=== PATIENT | female | born 2000 | race Hispanic/Latino ===

== ENCOUNTER 2020-10-16 12:20 | Inpatient (IN) | payer OTHER, SELFPAY ==
[2020-10-16] VITALS (11 sets, daily range): BP systolic 103–117; BP diastolic 55–84; PULSE 129–147; RESP 18–32; TEMP 36.2–39.4; O2SAT 98; BMI 26.2
--- NOTE | 2020-10-16 | DI.US.S_ITS ---
PROCEDURE: US RENAL COMPLETE INDICATIONS: PYELONEPHRITIS TECHNIQUE: Real-time scanning was performed of the kidneys and bladder, with image documentation. COMPARISON: [facility], , [facility], 10/16/2020, 15:35. FINDINGS: Kidneys: Kidneys are normal in size. Right kidney measures 13.1 cm long; left kidney measures 12.4 cm long. Right renal cortical thickness is 2.3 cm; left renal cortical thickness is 1.7 cm. Renal cortical echotexture is normal. No nephrolithiasis. On the right, 2 mildly echogenic solid appearing cortical masses are seen, which measure up to 2.4 cm within the mid/anterior portion and up to 2.6 cm within the inferior right kidney. There is severe right-sided hydronephrosis. The proximal right ureter is dilated to 1.3 cm. Moderate left-sided hydronephrosis is seen. Bladder: Not distended and poorly evaluated. Miscellaneous: No free pelvic fluid. IMPRESSION: There is severe right-sided hydronephrosis and moderate left-sided hydronephrosis. Two mildly echogenic masses are seen involving the right kidney. The etiology of these is uncertain, although they may relate to pyelonephritis. Renal cell carcinoma is relatively unlikely in a patient of this age. However, when clinically appropriate, following delivery, a dedicated renal mass protocol CT (without and with contrast) would be recommended for further evaluation. Dictated by: Rodger Deleon M.D. on 10/16/2020 at 15:11 Approved by: Rodger Deleon M.D. on 10/16/2020 at 15:14
[2020-10-16] MEDS: LACTATED RINGERS 1,000 ML 1000 ML IV (13:45)
--- NOTE | 2020-10-16 13:53 | PM.OBHP.1 ---
OB HPI Date/Time Date of admission: 10/16/20 Date Patient Seen: 10/16/20 Time Patient Seen: 13:53 History of Present Condition Chief complaint: Kidney Infection : 3 Para: 1 Estimated Date of Delivery: 01/25/21 Narrative: Carmen Beltre is a 20 year old @25+4 by reported 1st trimester US, presenting with pyelonephritis
--- NOTE | 2020-10-16 14:08 | DI.US.S_ITS ---
PROCEDURE: US OB LIMITED INDICATIONS: PYELONEPHRITIS OUTSIDE/PRIOR DATING DATA: Last menstrual period (LMP): Unknown LMP-based estimated date of delivery (CARMITA): Unknown First dating scan (date and location): W , 08/13/2020 Estimated date of delivery (CARMITA) from first dating scan: 01/18/2021 TECHNIQUE: Real-time scanning was performed of the fetus, with image documentation. Endovaginal scanning: Not done COMPARISON: [facility], , RENAL COMPLETE, 10/16/2020, 15:26. FINDINGS: A single live intrauterine gestation is present. Presentation: Vertex. Placenta: Placental position is anterior, without previa. Amniotic fluid index: 14.3 cm, normal range is 5-24 cm. heart rate: 158 beats per minute. Maternal cervical canal: 3.3 cm long. Normal lower limit is 2.5 cm. Biometric measurements: Biparietal diameter: 6.8 cm equals 27 weeks 2 days Head circumference: 24.8 cm equals 27 weeks 0 days Abdominal circumference: 21.6 cm equals 26 weeks 0 days Femur length: 4.9 cm equals 26 weeks 4 days Estimated gestational age from initial scan: 26 weeks 4 days. Estimated gestational age from the current scan: 26 weeks 5 days Estimated weight and percentile: 9 and 32 g, 32 percentile. The maternal right kidney collecting system is again seen to be severely dilated. IMPRESSION: Severely dilated maternal right renal collecting system. Normal interval growth when compared to the prior ultrasound examination. Dictated by: Rodger Deleon M.D. on 10/16/2020 at 15:15 Approved by: Rodger Deleon M.D. on 10/16/2020 at 15:18
[2020-10-16 14:20] LABS: Add Manual Diff / Slide Review NO; Basophils Absolute Auto 0 /uL (0-100); Basophils Percent Auto 0.1 % (0-2); Eosinophils Absolute Auto 0 /uL (0-450); Hematocrit 30.6 % (36-46); Hemoglobin 10.2 g/dL (12.0-16.0); Lymphocytes Absolute Auto 1000 /uL (1100-4500); Lymphocytes Percent Auto 5.4 % (25-40); Mean Corpuscular HGB Conc 33.4 % (30-36); Mean Corpuscular Hemoglobin 28.7 PG (26-34); Monocytes Absolute Auto 1500 /uL (0-900); Monocytes Percent Auto 8.3 % (3-14); Neutrophils Absolute Auto 15700 /uL (1500-7000); Neutrophils Percent Auto 86.2 % (50-75); Platelet Count 307 X10^3/uL (150-400); Red Blood Cell Count 3.56 X10^6/uL (4.0-5.2); Red Cell Distribution Width 13.5 % (11.6-14.8); White Blood Cell Count 18.2 X10^3/uL (4.5-11.0)
--- NOTE | 2020-10-16 14:21 | P.HP_ITS ---
History of Present Illness History of Present Illness Date Patient Seen: 10/16/20 Time Patient Seen: 13:45 Date of Onset of Symptoms: 10/16/20 Chief complaint: Kidney Infection Narrative: This patient is a 20-year-old 011 at 25 weeks 4 days by first- trimester ultrasound presenting with likely pyelonephritis. The patient reports that all her prior care has been through the [facility], with frequent moves and 2 ED visits at [facility]. She reports that she 1st began having flank pain in June 2020, and reports that she was seen in the emergency room sometime in July. She reports that on ultrasound, they told me that my kidneys and the baby's kidneys were inflamed from an infection.? She got IV fluids and cannot remember if she got IV antibiotics, and was discharged with planned outpatient follow-up. She cannot remember if she had p.o. antibiotics at this time. She was seen a 2nd time for worsening of her symptoms in August 2020, and reports that she was given IV fluids. She was discharged with an an tibiotic that she remembers being directed to take 4 times daily for 1 week, reporting that she remembered most of the doses. She has since been taking Macrobid once daily, and reports that she has been adherent to this regimen. Three days ago, she began to have worsening right flank pain, fevers, chills, malaise, muscle aches, and nausea, slowly worsening until this morning and prompting her 1st visit to [facility]. She reports good movement, denies contractions, denies suprapubic pain, denies vaginal bleeding or loss of fluid. She reports decreased p.o. intake due to her nausea and malaise over the last few days, and admits that she has not been hydrating well. The patient reports that prior to this she has no history of urinary tract infections or pyelonephritis, along with no history of kidney stones or any known renal abnormalities. She has a history of an uncomplicated term vaginal delivery, and reports a history of early surgical that was unc omplicated. The patient denies any other contributory obstetrical, gynecologic, medical, surgical, family, or social history. Her outside medical records are pending. Patient History Medical History (normal spontaneous vaginal delivery) Surgical History History of dilatation and curettage Meds Home Medications and Allergies Home Medications Medication Instructions Recorded Confirmed Type prenat.vits,hilary,wac-gtcp-nrwue 1 tab PO DAILY 10/16/20 10/16/20 History [ Vitamin] Allergies Allergy/AdvReac Type Severity Reaction Status Date / Time No Known Drug Allergies Allergy Verified 10/16/20 13:54 Review of Systems Constitutional Constitutional: Reports as per HPI Cardiovascular Cardiovascular: Reports system reviewed and no additional complaints, except as documented Respiratory Respiratory: Reports system reviewed and no additional complaints, except as documented Gastrointestinal Gastrointestinal: Reports as per HPI Genitourinary Genitourinary: Reports as per HPI Neurologic Neurologic: Reports as per HPI Exam Vital Signs (past 8 hours): 102-120/60-78, HR 130s-140s, T 102.5F, O2 98-100% on RA Narrative Exam Narrative: Patient resting in bed, alert and oriented, poor historian but this appears more related to healthcare literacy than to illness patient does appear pale, diaphoretic Const General: cooperative and diaphoretic Nutritional Appearance: average body habitus Orientation: alert, awake and oriented x3 Resp Effort & Inspection: normal respiratory effort Auscultation: clear to auscultation bilaterally Cardio Rate: regular rate Rhythm: regular rhythm GI Palpation: soft and No tender Other: Appropriately gravid, no suprapubic tenderness. heart rate initially 170-180s, baseline down trending with maternal hydration, now 160s, reactive, moderate variability. No contractions on toco. General: CVA tenderness (Bilaterally, right significantly worse than left) Extrem General: normal to inspection, capillary refill normal, no pedal edema and no calf tenderness Objective Labs Result Diagrams: 10/16/20 13:21 10/16/20 13:21 Assessment & Plan Assessment & Plan narrative: Patient is admitted with urosepsis, with known p rior episodes pyelonephritis, clinical and laboratory findings consistent with pyelonephritis, and meeting criteria for sepsis. Since admission, the patient has been aggressively fluid hydrated with lactated Ringer's, has been tested and found to be COVID negative, and has reassuring status in the setting of maternal sepsis. Oral sign out with labor and delivery nurses at [facility] indicates that no urine cultures were completed at her prior visits, and therefore sensitivities are not available. 1g of IV ceftriaxone has been administered per standard empiric therapy for pyelonephritis in , given that her prior bouts appear to have been incompletely treated and that there is greater safety data of ceftriaxone in compared to alternatives. Given the current status and staffing of the labor floor and the acute care floor in the setting of the pandemic, the patient will remain on Labor and delivery for the time being. The patient will receive close monitoring of vital signs, aggressive fluid hydration, IV antibiotics as below, and repeat labs as necessary. - Patient to continue 2nd L LR bolus, anticipate a 3rd L bolus with 250ccs/hr subsequently - VS q30 minutes until patient stability assured - urine culture, blood cultures, lactate pending - renal ultrasound, ultrasounds in progress - 1g IV ceftriaxone q24 until sensitivity data returns - NSTs qshift - regular diet - SCDs applied - PO tylenol for pain relief adequate at this time, consider IV morphine if neccessary
[2020-10-16 14:27] LABS: BUN Creatinine Ratio 10.2 (6-22); Blood Urea Nitrogen 5 mg/dL (7-17); Calcium 8.7 mg/dL (8.4-10.2); Carbon Dioxide 23 mmol/L (22-32); Chloride 100 mmol/L (98-107); Estimated Glomerular Filt Rate > 60.0 mL/min (>60); Glucose 89 mg/dL (70-100); HEMOLYSIS < 15 (0-50); Potassium 3.6 mmol/L (3.4-5.1); Sodium 130 mmol/L (137-145)
[2020-10-16 14:30] LABS: Appearance Urine UA SL CLOUDY; Bilirubin Urine UA NEGATIVE (NEGATIVE); Color Urine UA YELLOW; Glucose Urine UA NEGATIVE (Negative); Ketones Urine UA NEGATIVE (NEGATIVE); Leukocyte Esterase Urine UA TRACE (NEGATIVE); Nitrite Urine UA POSITIVE (Negative); Occult Blood Urine UA TRACE-LYSED (Negative); Protein Urine UA 1+ (Negative); Specific Gravity Urine UA 1.015 (1.000-1.035)
[2020-10-16] MEDS: ACETAMINOPHEN 325 MG TABLET 650 MG PO ×2 (14:30→20:52)
[2020-10-16 14:31] LABS: pH Urine UA 6.5 (4.5-8.0)
[2020-10-16 14:33] LABS: COVID19 -Nasal RAPID Negative (Negative)
[2020-10-16] MEDS: CEFTRIAXONE 1 GM/50 ML FROZ.PIGGY IV (14:35)
[2020-10-16 14:38] LABS: Bacteria Urine Many (>30); Culture Indicated Urine Specimen Cultured; RBC Urine 0-1/HPF (0-5/HPF); Squamous Epithelial Cell Urine 1-5 /HPF (0-5/HPF); WBC Urine 10-30/HPF (0-5/HPF)
[2020-10-16] MEDS: LACTATED RINGERS 1,000 ML 999 ML IV (14:42)
[2020-10-16] MEDS: LACTATED RINGERS 1,000 ML 250 ML IV (16:11)
--- NOTE | 2020-10-16 17:05 | PM.PN.1 ---
Subjective Subjective Date Patient Seen: 10/16/20 Time Patient Seen: 17:06 Interval history: Patient reports no change in her symptoms, neither worsening pain nor significant improvement. Patient previously hypotensive to 90s/50s with HR in 140s, transfer to [facility] floor in progress for close monitoring of VS and sepsis overnight. Exam Vital Signs (past 8 hours): 114/56, HR 114 10/16/20 14:30 Temperature 101.1 F H Const General: cooperative Other: Color and diaphoresis improved Objective Labs Result Diagrams: 10/16/20 13:21 10/16/20 13:21 Labs: Laboratory Results - last 24 hr 10/16/20 10/16/20 10/16/20 12:30 13:20 13:21 WBC 18.2 H RBC 3.56 L Hgb 10.2 L Hct 30.6 L MCV 86.0 MCH 28.7 MCHC 33.4 RDW 13.5 Plt Count 307 Neut % (Auto) 86.2 H Lymph % (Auto) 5.4 L [place] % (Auto) 8.3 Eos % (Auto) 0.0 L Baso % (Auto) 0.1 Neut # (Auto) 39013 H Lymph # (Auto) 1000 L [place] # (Auto) 1500 H Eos # (Auto) 0 Baso # (Auto) 0 Sodium Potassium Chloride Carbon Dioxide BUN Creatinine Estimated GFR BUN/Creatinine Ratio Glucose Lactate Calcium Urine Color Yellow Urine Appearance Sl cloudy Urine pH 6.5 Ur Specific [place] 1.015 Urine Protein 1+ H Urine Glucose (UA) Negative Urine Ketones Negative Urine Occult Blood Trace-lysed Urine Nitrate Positive H Urine Bilirubin Negative Urine Urobilinogen 1.0 Ur Leukocyte Esterase Trace H Urine RBC 0-1/hpf Urine WBC 10-30/hpf H Ur Squamous Epith Cells 1-5 /hpf Urine Bacteria Many (>30) H Ur Culture Indicated? Specimen cultured SARS-CoV-2 (PCR) Negative 10/16/20 10/16/20 13:21 15:45 WBC RBC Hgb Hct MCV MCH MCHC RDW Plt Count Neut % (Auto) Lymph % (Auto) [place] % (Auto) Eos % (Auto) Baso % (Auto) Neut # (Auto) Lymph # (Auto) [place] # (Auto) Eos # (Auto) Baso # (Auto) Sodium 130 L Potassium 3.6 Chloride 100 Carbon Dioxide 23 BUN 5 L Creatinine 0.49 L Estimated GFR > 60.0 BUN/Creatinine Ratio 10.2 Glucose 89 Lactate 1.0 Calcium 8.7 Urine Color Urine Appearance Urine pH Ur Specific [place] Urine Protein Urine Glucose (UA) Urine Ketones Urine Occult Blood Urine Nitrate Urine Bilirubin Urine Urobilinogen Ur Leukocyte Esterase Urine RBC Urine WBC Ur Squamous Epith Cells Urine Bacteria Ur Culture Indicated? SARS-CoV-2 (PCR) [facility] Medical History (normal spontaneous vaginal delivery) Surgical History History of dilatation and curettage Assessment & Plan Assessment & Plan narrative: Since admission, patient became more hypotensive and tachycardic triggering transfer to acute care floor, but now appears to be clinically improving with improving vital signs and appearance. Renal ultrasound showed no renal abscess, but significant hydronephrosis bilaterally. No clear signs of obstruction on imaging, and patient has no clinical signs of kidney stones on US. Further, renal function appears normal with normal creatinine. Discussed with Dr. Piña of Urology, patient will be expectantly managed for hydronephrosis at this time given unclear cause and normal renal function. Will continue to manage pyelonephritis as below, trend daily labs. - S/p 2L LR as IV bolus, 250ccs/hr subsequently - VS q1 hr - urine culture, blood cultures pending - renal ultrasound as above, will continue to manage as above - Daily CBC, BMP - 1g IV ceftriaxone q24 until sensitivity data returns - NSTs qshift - regular diet - SCDs applied - PO tylenol for pain relief adequate at this time, IV morphine if necessary
[2020-10-16] MEDS: MORPHINE 2 MG/ML INJ IV ×2 (18:48→22:25)
--- NOTE | 2020-10-16 19:06 | PC.NURSE ---
Pt admitted to 226 from the center with c/o R flank pain. Transferred for observation of VS and possible sepsis. IV LR infusing @ 250 to L hand IV. Medicated with MS for R flank pain. Admission assessment completed.
[2020-10-16] MEDS: LACTATED RINGERS 1,000 ML 125 ML IV (20:42)
[2020-10-17] VITALS (12 sets, daily range): BP systolic 102–112; BP diastolic 55–74; PULSE 83–134; RESP 15–25; TEMP 36.5–39.3; O2SAT 98–100
--- NOTE | 2020-10-17 00:38 | PC.NURSE ---
10/16/2020 2340- RN at patient bedside for a Non-Stress Test. Patient states she has been feeling baby move. Patient denies feeling contractions. Baseline Heart Rate: 150 with moderate variability. Accelerations present. No Decelerations noted. No contractions seen per TOCO. Category I tracing. Non-Stress Test started at 2340 and ended at 0020 on 10/17/2020.
[2020-10-17] MEDS: LACTATED RINGERS 1,000 ML 250 ML IV ×4 (00:59→18:21)
[2020-10-17] MEDS: ACETAMINOPHEN 325 MG TABLET 650 MG PO ×3 (03:57→17:23)
[2020-10-17 05:14] LABS: Add Manual Diff / Slide Review NO; Basophils Absolute Auto 0 /uL (0-100); Basophils Percent Auto 0.2 % (0-2); Eosinophils Absolute Auto 0 /uL (0-450); Eosinophils Percent Auto 0.1 % (2-4); Hematocrit 22.9 % (36-46); Hemoglobin 7.8 g/dL (12.0-16.0); Lymphocytes Absolute Auto 1100 /uL (1100-4500); Mean Corpuscular HGB Conc 34.1 % (30-36); Mean Corpuscular Volume 85.2 fL (80-100); Monocytes Absolute Auto 1900 /uL (0-900); Neutrophils Absolute Auto 12600 /uL (1500-7000); Neutrophils Percent Auto 80.7 % (50-75); Platelet Count 236 X10^3/uL (150-400); Red Blood Cell Count 2.69 X10^6/uL (4.0-5.2); Red Cell Distribution Width 13.4 % (11.6-14.8); White Blood Cell Count 15.6 X10^3/uL (4.5-11.0)
[2020-10-17 05:24] LABS: Calcium 8.1 mg/dL (8.4-10.2); Carbon Dioxide 24 mmol/L (22-32); Chloride 105 mmol/L (98-107); Estimated Glomerular Filt Rate > 60.0 mL/min (>60); Glucose 97 mg/dL (70-100); HEMOLYSIS < 15 (0-50); Potassium 3.5 mmol/L (3.4-5.1); Sodium 129 mmol/L (137-145)
[2020-10-17 05:30] LABS: BUN Creatinine Ratio 5.4 (6-22); Blood Urea Nitrogen 2 mg/dL (7-17)
--- NOTE | 2020-10-17 10:01 | PM.PN.1 ---
Subjective Subjective Date Patient Seen: 10/17/20 Time Patient Seen: 10:01 Interval history: Patient reports that she has been using tylenol for pain control, spiked another fever just before midnight but is now feeling improved. No chest pain or trouble breathing, palpitations. Tolerating PO, ambulating, voiding, passing flatus. Normal movement, no contractions, no LOF, no VB. NST completed by nursing staff this AM, reactive and cat 1 with no contractions on toco. Exam Vital Signs (past 8 hours): - 10/17/20 03:44 10/17/20 03:57 10/17/20 08:40 Temperature 100.0 F H 100 F H 99.7 F H Pulse Rate 121 H 83 Respiratory Rate 21 15 Blood Pressure 112/74 110/63 Pulse Oximetry 100 99 10/17/20 09:55 Temperature 98.1 F Pulse Rate Respiratory Rate Blood Pressure Pulse Oximetry 100 Oxygen Delivery Method Room Air Oxygen Flow Rate 0 Narrative Exam Narrative: Patient resting in bed, just finished breakfast. Remains pale, but otherwise well appearing. Const General: cooperative, comfortable and well developed Orientation: alert, awake and oriented x3 Resp Effort & Inspection: normal respiratory effort Auscultation: clear to auscultation bilaterally Cardio Rate: regular rate Rhythm: regular rhythm GI Palpation: soft Other: appropriately gravid Extrem General: normal to inspection Objective Labs Result Diagrams: 10/17/20 04:55 10/17/20 04:55 Labs: Laboratory Results - last 24 hr 10/16/20 10/16/20 10/16/20 12:30 13:20 13:21 WBC 18.2 H RBC 3.56 L Hgb 10.2 L Hct 30.6 L MCV 86.0 MCH 28.7 MCHC 33.4 RDW 13.5 Plt Count 307 Neut % (Auto) 86.2 H Lymph % (Auto) 5.4 L [place] % (Auto) 8.3 Eos % (Auto) 0.0 L Baso % (Auto) 0.1 Neut # (Auto) 78016 H Lymph # (Auto) 1000 L [place] # (Auto) 1500 H Eos # (Auto) 0 Baso # (Auto) 0 Sodium Potassium Chloride Carbon Dioxide BUN Creatinine Estimated GFR BUN/Creatinine Ratio Glucose Lactate Calcium Urine Color Yellow Urine Appearance Sl cloudy Urine pH 6.5 Ur Specific [place] 1.015 Urine Protein 1+ H Urine Glucose (UA) Negative Urine Ketones Negative Urine Occult Blood Trace-lysed Urine Nitrate Positive H Urine Bilirubin Negative Urine Urobilinogen 1.0 Ur Leukocyte Esterase Trace H Urine RBC 0-1/hpf Urine WBC 10-30/hpf H Ur Squamous Epith Cells 1-5 /hpf Urine Bacteria Many (>30) H Ur Culture Indicated? Specimen cultured Nasal Screen MRSA (PCR) SARS-CoV-2 (PCR) Negative Blood Type Antibody Screen 10/16/20 10/16/20 10/16/20 13:21 15:45 17:05 WBC RBC Hgb Hct MCV MCH MCHC RDW Plt Count Neut % (Auto) Lymph % (Auto) [place] % (Auto) Eos % (Auto) Baso % (Auto) Neut # (Auto) Lymph # (Auto) [place] # (Auto) Eos # (Auto) Baso # (Auto) Sodium 130 L Potassium 3.6 Chloride 100 Carbon Dioxide 23 BUN 5 L Creatinine 0.49 L Estimated GFR > 60.0 BUN/Creatinine Ratio 10.2 Glucose 89 Lactate 1.0 Calcium 8.7 Urine Color Urine Appearance Urine pH Ur Specific [place] Urine Protein Urine Glucose (UA) Urine Ketones Urine Occult Blood Urine Nitrate Urine Bilirubin Urine Urobilinogen Ur Leukocyte Esterase Urine RBC Urine WBC Ur Squamous Epith Cells Urine Bacteria Ur Culture Indicated? Nasal Screen MRSA (PCR) Negative for mrsa SARS-CoV-2 (PCR) Blood Type Antibody Screen 10/16/20 10/17/20 10/17/20 20:55 04:55 04:55 WBC 15.6 H RBC 2.69 L Hgb 7.8 L Hct 22.9 L MCV 85.2 MCH 29.0 MCHC 34.1 RDW 13.4 Plt Count 236 Neut % (Auto) 80.7 H Lymph % (Auto) 7.0 L [place] % (Auto) 12.0 Eos % (Auto) 0.1 L Baso % (Auto) 0.2 Neut # (Auto) 05365 H Lymph # (Auto) 1100 [place] # (Auto) 1900 H Eos # (Auto) 0 Baso # (Auto) 0 Sodium 129 L Potassium 3.5 Chloride 105 Carbon Dioxide 24 BUN 2 L Creatinine 0.37 L Estimated GFR > 60.0 BUN/Creatinine Ratio 5.4 L Glucose 97 Lactate Calcium 8.1 L Urine Color Urine Appearance Urine pH Ur Specific [place] Urine Protein Urine Glucose (UA) Urine Ketones Urine Occult Blood Urine Nitrate Urine Bilirubin Urine Urobilinogen Ur Leukocyte Esterase Urine RBC Urine WBC Ur Squamous Epith Cells Urine Bacteria Ur Culture Indicated? Nasal Screen MRSA (PCR) SARS-CoV-2 (PCR) Blood Type O Positive Antibody Screen Negative PFSH Medical History (normal spontaneous vaginal delivery) Surgical History History of dilatation and curettage Social History household members: spouse Smoking Status: Never smoker alcohol intake: never Assessment & Plan Assessment and plan (1) Pyelonephritis affecting : Status: Acute Assessment & Plan narrative: This patient is a 20yo P1 @25+5 admitted with pyelonephritis. Patient had one fever at midnight last night, but is otherwise clinically stable. Anticipate at least 24 hours of IV abx coverage necessary for patient to remain afebrile. - VSS, decrease IVF to 125ccs/hr - VS q1 hr this AM, will decrease to q4 if remains stable - urine culture, blood cultures pending - Daily CBC, BMP - 1g IV ceftriaxone q24 until sensitivity data returns - NSTs qshift - regular diet - SCDs applied - PO tylenol for pain relief adequate at this time, IV morphine if necessary Quality VTE Deep Vein Thrombosis/Pulmonary Embolism Present on Admission: No
--- NOTE | 2020-10-17 10:03 | PC.NURSE ---
AM shift report. pt AO and receptive to care. Up SBA to BR and denying issues with ambulation. Voiding without pain. 100F fever during NOC shift, managed with Tylenol, and no fever present thus far for this nurse (98.1F). Patient reporting mild headache and mild right flank pain. Administered 650mg Tylenol for head and flank pain at approximately 1000. LR infusing 225/hr to left hand PIV. Tele reading NSR with occasional tachy rate. L&D nurse came up to room around 0845 for a bedside non-stress test.
[2020-10-17] MEDS: CEFTRIAXONE 1 GM/50 ML FROZ.PIGGY IV (14:27)
--- NOTE | 2020-10-17 14:40 | CM.DANOTE ---
DCP: Case received, EMR reviewed and met with patient. Introduced self and role. Was able to receive some information regarding patient's baseline activity information prior to hospitalization. DCP assessment completed with information currently available. 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 PCP: ROSANA Newby/Dr. Gann. Payer: [facility] [employer]. Patient came to the hospital via private vehicle secondary to having fever, as well as flank back pain. Patient holds diagnosis of pyelonephritis. She is here for IV ABO. Patient is also 25 weeks , and is under the care of Dr. Gann. Met with patient in her room. She is alert and oriented, and was laying in bed. 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 [facility], but has been seeing Dr. Gann for her OB appointments. Patient is to Bg, who is also active duty Booster. P: DCP to continue to follow and be available for any resources needed. She should be able to go home when she is medically stable. Tricia Alejandro RN/Tub Wash Operator
[2020-10-17] MEDS: MORPHINE 2 MG/ML INJ IV ×2 (15:38→18:49)
[2020-10-17] MEDS: FERROUS SULFATE 325 MG TABLET PO (16:55)
[2020-10-17] MEDS: SODIUM CHLORIDE 0.9% 500 ML 1000 ML IV (18:22)
--- NOTE | 2020-10-17 18:38 | PC.NURSE ---
Evening shift note: Pt A/O x3, able to ambulate to bathroom independently, denies pain with voiding. Normal temperature for dayshift, Tmax for this nurse has been 102.7, tylenol administered, Dr. Gann updated on pt status, 500mL bolus ordered with cooling measures. Pt reports headache and flank pain, administered MS per order. LR infusing at 125 mL/hr, when the 500 bolus is completed. Telemetry shows NS with tachycardia. center nurse came at 1800 for bedside non-stress test, will return at 1900 to repeat due to heart rate elevation. Bed low and locked, call light within reach, will continue to monitor.
[2020-10-17 18:48] LABS: Add Manual Diff / Slide Review NO; Basophils Absolute Auto 0 /uL (0-100); Basophils Percent Auto 0.2 % (0-2); Eosinophils Absolute Auto 0 /uL (0-450); Eosinophils Percent Auto 0.2 % (2-4); Hematocrit 23.9 % (36-46); Lymphocytes Absolute Auto 700 /uL (1100-4500); Mean Corpuscular HGB Conc 33.4 % (30-36); Mean Corpuscular Hemoglobin 28.8 PG (26-34); Mean Corpuscular Volume 86.1 fL (80-100); Monocytes Absolute Auto 600 /uL (0-900); Monocytes Percent Auto 5.2 % (3-14); Neutrophils Absolute Auto 11100 /uL (1500-7000); Neutrophils Percent Auto 88.4 % (50-75); Platelet Count 253 X10^3/uL (150-400); Red Blood Cell Count 2.77 X10^6/uL (4.0-5.2); Red Cell Distribution Width 13.4 % (11.6-14.8); White Blood Cell Count 12.5 X10^3/uL (4.5-11.0)
[2020-10-18] VITALS (8 sets, daily range): BP systolic 90–108; BP diastolic 59–73; PULSE 80–109; RESP 16–26; TEMP 36.2–37.3; O2SAT 93–100
--- NOTE | 2020-10-18 00:30 | PC.NURSE ---
0000- Placed on monitor for NST. Jennifer RN will evaluate. Will monitor.
[2020-10-18] MEDS: ACETAMINOPHEN 325 MG TABLET 650 MG PO ×4 (01:27→23:52)
[2020-10-18] MEDS: LACTATED RINGERS 1,000 ML 125 ML IV ×3 (04:01→23:57)
[2020-10-18 06:49] LABS: Add Manual Diff / Slide Review NO; Basophils Absolute Auto 0 /uL (0-100); Basophils Percent Auto 0.1 % (0-2); Eosinophils Absolute Auto 100 /uL (0-450); Eosinophils Percent Auto 0.5 % (2-4); Hematocrit 23.9 % (36-46); Lymphocytes Absolute Auto 1800 /uL (1100-4500); Lymphocytes Percent Auto 13.6 % (25-40); Mean Corpuscular HGB Conc 33.4 % (30-36); Mean Corpuscular Hemoglobin 28.8 PG (26-34); Mean Corpuscular Volume 86.3 fL (80-100); Monocytes Absolute Auto 1200 /uL (0-900); Monocytes Percent Auto 9.3 % (3-14); Neutrophils Absolute Auto 10000 /uL (1500-7000); Neutrophils Percent Auto 76.5 % (50-75); Platelet Count 253 X10^3/uL (150-400); Red Blood Cell Count 2.77 X10^6/uL (4.0-5.2); Red Cell Distribution Width 13.5 % (11.6-14.8)
[2020-10-18 06:57] LABS: Calcium 8.3 mg/dL (8.4-10.2); Carbon Dioxide 24 mmol/L (22-32); Chloride 108 mmol/L (98-107); Estimated Glomerular Filt Rate > 60.0 mL/min (>60); Glucose 86 mg/dL (70-100); HEMOLYSIS < 15 (0-50); Potassium 3.7 mmol/L (3.4-5.1); Sodium 135 mmol/L (137-145)
[2020-10-18 06:59] LABS: BUN Creatinine Ratio 4.8 (6-22); Blood Urea Nitrogen 2 mg/dL (7-17)
--- NOTE | 2020-10-18 07:38 | PM.PN.1 ---
Subjective Subjective Date Patient Seen: 10/18/20 Time Patient Seen: 07:40 Interval history: Patient had another fever yesterday evening, but this AM reports feeling overall improved, both since last night and since admission. Reports good pain control on tylenol, ambulating, voiding, tolerating PO. Good movement, no contractions, no vaginal bleeding, no loss of fluid. Reports intermittent headaches, improved since admission, no visual changes or hypertension. Exam Vital Signs (past 8 hours): - 10/18/20 01:27 10/18/20 02:57 Temperature 98.1 F 98.0 F Pulse Rate 87 Respiratory Rate 21 Blood Pressure 96/59 L Pulse Oximetry 99 Oxygen Delivery Method Room Air Oxygen Flow Rate 0 Const General: cooperative, healthy appearing and comfortable Resp Effort & Inspection: normal respiratory effort Auscultation: clear to auscultation bilaterally Cardio Rate: regular rate Rhythm: regular rhythm GI Palpation: soft and No tender Other: appropriately gravid Extrem General: normal to inspection Objective Labs Result Diagrams: 10/18/20 06:20 10/18/20 06:20 Labs: Laboratory Results - last 24 hr 10/17/20 10/18/20 10/18/20 18:42 06:20 06:20 WBC 12.5 H 13.0 H RBC 2.77 L 2.77 L Hgb 8.0 L 8.0 L Hct 23.9 L 23.9 L MCV 86.1 86.3 MCH 28.8 28.8 MCHC 33.4 33.4 RDW 13.4 13.5 Plt Count 253 253 Neut % (Auto) 88.4 H 76.5 H Lymph % (Auto) 6.0 L 13.6 L [place] % (Auto) 5.2 9.3 Eos % (Auto) 0.2 L 0.5 L Baso % (Auto) 0.2 0.1 Neut # (Auto) 40662 H 92592 H Lymph # (Auto) 700 L 1800 [place] # (Auto) 600 1200 H Eos # (Auto) 0 100 Baso # (Auto) 0 0 Sodium 135 L Potassium 3.7 Chloride 108 H Carbon Dioxide 24 BUN 2 L Creatinine 0.42 L Estimated GFR > 60.0 BUN/Creatinine Ratio 4.8 L Glucose 86 Calcium 8.3 L PFSH Medical History (normal spontaneous vaginal delivery) Surgical History History of dilatation and curettage Social History household members: spouse Smoking Status: Never smoker alcohol intake: never Assessment & Plan Assessment & Plan narrative: This patient is a 20yo P1 @25+6 admitted with pyelonephritis. Patient again febrile overnight, but improved this AM. Blood cultures negative, urine cultures +for gram negative rods and species/sensitivities pending. Will continue on ceftriaxone 1g q24 for now pending sensitivities. Will transition patient to different abx if indicated, if continues to spike fevers but sensitive to ceftriaxone, will consider repeat imaging and urology consult. - IVF to 125ccs/hr - VS q4 hr - urine culture pending as above - Daily CBC, BMP - 1g IV ceftriaxone q24 until sensitivity data returns - NSTs qshift - regular diet - SCDs applied - PO tylenol for pain relief adequate at this time, IV morphine if necessary Quality VTE Deep Vein Thrombosis/Pulmonary Embolism Present on Admission: No
[2020-10-18] MEDS: FERROUS SULFATE 325 MG TABLET PO ×2 (08:07→16:57)
--- NOTE | 2020-10-18 09:40 | PC.NURSE ---
Zak. pt stood up and started ambulating to when she felt like she was going to get sick. She vomited into the trash can, a medium amount of mostly breakfast foods. She voided and returned to bed and used the call light to alert our team. pt stated she doesn't feel much better and this nurse plans to administer IV Zofran per the pt request. Set pt up with oral care and provided her with hot water and catalina fady.
[2020-10-18] MEDS: ONDANSETRON 4 MG/2 ML INJ IV (09:48)
--- NOTE | 2020-10-18 10:21 | PC.NURSE ---
Addendum entered by Lo Storm R.N. 10/18/20 12:31: After shower pt reporting swelling and a decrease in dexterity with left hand. Strength test performed and left hand less strong, left and right leg equal. Face symetric and speech is appropriate. PIV flushed with good blood return. I held fluids and placed pt's arm on 2 pillows. After approximately 30 minutes, pt reporting improvements. Original Note: AM shift note. pt AO and receptive to care. More mobile than yesterday's shift, face color has improved, and pt is reporting an improvement. Denying headache and reporting mild pain to right flank. Administered 650mg Tylenol this AM. Small-medium amount of emsis after breakfast (approximately 0915) and administered IV Zofran. pt reporting improvements. IND in room and denying ambulation concerns.
[2020-10-18] MEDS: CEFTRIAXONE 1 GM/50 ML FROZ.PIGGY IV (14:57)
--- NOTE | 2020-10-18 18:23 | PC.NURSE ---
Evening shift note: Pt A/Ox3, independent in room, states that she has improved since yesterday. Notes pain is mild, requiring tylenol only, had one episode of emesis after breakfast this morning, but denies nausea at this time. Fluids infusing as ordered to LFA PIV. No further needs at this time, bed low and locked, call light with in reach, will continue to monitor.
[2020-10-19 00:52] VITALS: BP 104/64; PULSE 94; RESP 18; TEMP 36.8; O2SAT 99
--- NOTE | 2020-10-19 01:05 | PC.NURSE ---
0030 Received safe hand-off report. The patient has transferred from ICU to ACU. She is in stable condition, on room air, and has a left forearm PIV with LR infusing at 125mL/h. She denies pain. She is independent and ambulatory. No s/sx of distress. I met with the L&D nurse who did a stress test and was told the NST was reactive with heartbeat at 150. Will continue to monitor.
[2020-10-19 05:36] VITALS: BP 105/62; PULSE 93; RESP 16; TEMP 36.7; O2SAT 99
[2020-10-19 06:40] LABS: BUN Creatinine Ratio 8.7 (6-22); Blood Urea Nitrogen 4 mg/dL (7-17); Calcium 8.8 mg/dL (8.4-10.2); Carbon Dioxide 27 mmol/L (22-32); Chloride 105 mmol/L (98-107); Estimated Glomerular Filt Rate > 60.0 mL/min (>60); Glucose 78 mg/dL (70-100); HEMOLYSIS < 15 (0-50); Potassium 3.6 mmol/L (3.4-5.1); Sodium 135 mmol/L (137-145)
[2020-10-19] MEDS: LACTATED RINGERS 1,000 ML 125 ML IV (08:25)
[2020-10-19] MEDS: FERROUS SULFATE 325 MG TABLET PO (08:25)
[2020-10-19 08:38] LABS: Add Manual Diff / Slide Review NO; Basophils Absolute Auto 0 /uL (0-100); Basophils Percent Auto 0.2 % (0-2); Eosinophils Absolute Auto 100 /uL (0-450); Eosinophils Percent Auto 0.9 % (2-4); Hematocrit 26.4 % (36-46); Hemoglobin 8.9 g/dL (12.0-16.0); Lymphocytes Absolute Auto 2100 /uL (1100-4500); Lymphocytes Percent Auto 21.6 % (25-40); Mean Corpuscular HGB Conc 33.8 % (30-36); Mean Corpuscular Volume 85.9 fL (80-100); Monocytes Absolute Auto 500 /uL (0-900); Monocytes Percent Auto 4.8 % (3-14); Neutrophils Absolute Auto 7200 /uL (1500-7000); Neutrophils Percent Auto 72.5 % (50-75); Platelet Count 333 X10^3/uL (150-400); Red Blood Cell Count 3.07 X10^6/uL (4.0-5.2); Red Cell Distribution Width 13.2 % (11.6-14.8); White Blood Cell Count 9.9 X10^3/uL (4.5-11.0)
--- NOTE | 2020-10-19 12:15 | PM.DS.1 ---
History of Present Illness History of Present Illness Chief complaint: Kidney Infection Narrative: This patient is a 20-year-old 011 at 25 weeks 4 days by first-trimester ultrasound presenting with likely pyelonephritis. The patient reports that all her prior care has been through the [facility], with frequent moves and 2 ED visits at [facility]. She reports that she 1st began having flank pain in June 2020, and reports that she was seen in the emergency room sometime in July. She reports that on ultrasound, they told me that my kidneys and the baby's kidneys were inflamed from an infection.? She got IV fluids and cannot remember if she got IV antibiotics, and was discharged with planned outpatient follow-up. She cannot remember if she had p.o. antibiotics at this time. She was seen a 2nd time for worsening of her symptoms in August 2020, and reports that she was given IV fluids. She was discharged with an antibiotic that she remembers being directed to take 4 times daily for 1 week, reporting that she remembered most of the doses. She has since been taking Macrobid once daily, and reports that she has been adherent to this regimen. Three days ago, she began to have worsening right flank pain, fevers, chills, malaise, muscle aches, and nausea, slowly worsening until this morning and prompting her 1st visit to [facility]. She reports good movement, denies contractions, denies suprapubic pain, denies vaginal bleeding or loss of fluid. She reports decreased p.o. intake due to her nausea and malaise over the last few days, and admits that she has not been hydrating well. The patient reports that prior to this she has no history of urinary tract infections or pyelonephritis, along with no history of kidney stones or any known renal abnormalities. She has a history of an uncomplicated term vaginal delivery, and reports a history of early surgical that was uncomplicated. The patient denies any other contributory obstetrical, gynecologic, medical, surgical, family, or social history. Her outside medical records are pending. Discharge Providers Provider Date of admission: 10/16/20 12:20 Discharge Date: 10/19/20 Discharge provider: Susie Gann MD Summary Hospital Course Discharge Diagnosis: Pyelonephritis in Hospital Course: This patient is a 20-year-old para 1 who presented at 25 and 4 with urosepsis secondary to pyelonephritis. The pyelonephritis had been previously managed outpatient an outside facility, and had been 1st diagnosed in July 2020. The patient was septic on admission and was aggressively fluid hydrated and treated with IV antibiotics, and urine cultures revealed pansensitive E coli. Renal ultrasound revealed significant hydronephrosis worse on the right than the left, this was discussed with urology on-call. No signs of obstruction were seen including no signs of kidney stone, and her presentation is not clinically significant with kidney stone. Given her otherwise normal kidney function, we discussed close outpatient follow-up of symptoms and reassessment after the . She continued ceftriaxone 1 g Q 24 hours IV until she was afebrile for over 24 hours. The patient is significantly clinically improved, has had no obstetrical complaints throughout with reassuring status on ultrasound and twice daily NSTs. Precautions for return were discussed, and the patient was discharged at 26+ 0 with close outpatient follow-up. Exam Vital Signs (past 8 hours): - 10/19/20 05:36 Temperature 98.0 F Pulse Rate 93 H Respiratory Rate 16 Blood Pressure 105/62 Pulse Oximetry 99 Oxygen Delivery Method Room Air Oxygen Flow Rate 0 Narrative Exam Narrative: Patient appears much improved, normal skin color, not diaphoretic. Resting in bed, comfortably mobile. Denies obstetrical complaints today. Ambulating, tolerating p.o., reports feeling subjectively ?much improved ?. NST reviewed, no contractions on tocometry. Baseline 130, moderate variability, 10 x 10 accels present. Const General: cooperative, healthy appearing and comfortable Resp Effort & Inspection: normal respiratory effort Auscultation: clear to auscultation bilaterally Cardio Rate: regular rate Rhythm: regular rhythm GI Palpation: soft and No tender Other: Appropriately gravid, NST pending Skin General: no rashes or lesions noted Extrem General: normal to inspection Objective Labs Result Diagrams: 10/19/20 06:10 10/19/20 06:10 Labs: Laboratory Results - last 24 hr 10/19/20 10/19/20 06:10 06:10 WBC 9.9 RBC 3.07 L Hgb 8.9 L Hct 26.4 L MCV 85.9 MCH 29.0 MCHC 33.8 RDW 13.2 Plt Count 333 Neut % (Auto) 72.5 Lymph % (Auto) 21.6 L [place] % (Auto) 4.8 Eos % (Auto) 0.9 L Baso % (Auto) 0.2 Neut # (Auto) 7200 H Lymph # (Auto) 2100 [place] # (Auto) 500 Eos # (Auto) 100 Baso # (Auto) 0 Sodium 135 L Potassium 3.6 Chloride 105 Carbon Dioxide 27 BUN 4 L Creatinine 0.46 L Estimated GFR > 60.0 BUN/Creatinine Ratio 8.7 Glucose 78 Calcium 8.8 [facility] Medical History (normal spontaneous vaginal delivery) Surgical History History of dilatation and curettage Social History household members: spouse Smoking Status: Never smoker alcohol intake: never Discharge Assessment & Plan Assessment and Plan Assessment: This patient was admitted with pyelonephritis affecting . She was septic on admission but responded to IV fluids, and has been treated with IV ceftriaxone until over 24 hours afebrile with significant clinical improvement. Cultures revealed pansensitive E coli, and she will be discharged on b.i.d. cefdinir for a total of 14 days, followed by prophylactic treatment throughout the . She has hydronephrosis but otherwise normal kidney function, and per recommendations of urology will be closely monitored during the with follow-up outpatient. Precautions for return were discussed with the patient, and she has follow-up scheduled next week. Plan of Treatment: Continue b.i.d. iron supplementation. 300 mg cefdinir b.i.d. for 14 days with subsequent prophylactic dosing throughout the . Follow-up in 1 week in the office. Discharge Plan Discharge Plan Patient Disposition: Home Discharge orders & Medications Prescriptions: New cefdinir 300 mg capsule 300 mg PO BID Qty: 30 RF: 2 ferrous gluconate 324 mg (37.5 mg iron) tablet 324 mg PO BID Qty: 60 RF: 2 Continued prenat.vits,hilary,jow-[id number]-tmtcv Tablet 1 tab PO DAILY RF: 0 Follow up/Referrals: Susie Gann MD [Physician] - 10/26/20 3:45 pm (Follow up in OB clinic at [facility] on Monday, 10/26 at 3:45 PM. Please arrive 15 minutes before your scheduled appointment time. ) Diet/Activity/Treatments Diet: Regular Activity: Call or come to the emergency department with worsening pain, fevers, chills, nausea, vomiting, contractions, decreased movement, vaginal loss of fluid like your water broke, or vaginal bleeding. Skin/Wound/Dressing Care Report to your healthcare provider any signs of infection, such as:: chills, fever, night sweats, increased pain, unusual drainage and unusual redness Visit Report/Discharge Packet Instructions: DI for Kidney Infection Quality VTE Deep Vein Thrombosis/Pulmonary Embolism Present on Admission: No
[2020-10-19] MEDS: CEFTRIAXONE 1 GM/50 ML FROZ.PIGGY IV (13:42)
--- NOTE | 2020-10-19 15:18 | PC.NURSE ---
Patient given discharge instructions and all questions answered. Transferred off unit via wheelchair to car. driving home.
--- NOTE | 2020-10-19 15:24 | CM.DPC ---
DCP: continued: EMR reviewed, d/c order noted. Pt has gone home this afternoon in company of her .
== END 2020-10-19 15:15 | disposition home or self-care (01) | DRG 832 ==
LOC: LABOR 12:35 → ICU 18:05 → AC 10-19 12:15 → ICU 10-19 13:00 → LABOR 10-19 13:00
PROVIDERS: Internal Medicine; Admitting Provider Obstetrics & Gynecology; Referring Provider Obstetrics & Gynecology; Visit Provider Obstetrics & Gynecology
DX: O23.02 Infections of kidney in pregnancy, second trimester (principal); N13.6 Pyonephrosis; Z3A.25 25 weeks gestation of pregnancy; R00.0 Tachycardia, unspecified; I95.9 Hypotension, unspecified; Z20.822 Contact with and (suspected) exposure to COVID-19
CPT/HCPCS: 36415; 59025; 76770; 76815; 80048; 81001; 82962; 83605; 85025; 86850; 86900; 86901; 87040; 87077; 87086; 87186; 87635; 87797; 99221; 99231; 99238; G0379; J2270; J2405

== ENCOUNTER → 2020-10-27 15:21 | Outpatient (CLI) | payer OTHER, SELFPAY ==
[2020-10-16 18:19] VITALS: BMI 26.2
[2020-10-27 17:53] LABS: Hematocrit 30.2 % (36-46); Hemoglobin 10.2 g/dL (12.0-16.0)
[2020-10-27 18:28] LABS: GTT (PREG) 1 Hour PP 50gm Dose 86 mg/dL (76-139)
== END ==
PROVIDERS: Referring Provider Obstetrics & Gynecology; Visit Provider Obstetrics & Gynecology
DX: Z34.82 Encounter for supervision of other normal pregnancy, second trimester (principal); Z3A.27 27 weeks gestation of pregnancy
CPT/HCPCS: 82950; 85014; 85018

== ENCOUNTER → 2020-11-18 11:07 | Outpatient (CLI) | payer OTHER, SELFPAY ==
[2020-10-16 18:19] VITALS: BMI 26.2
[2020-11-18 12:57] LABS: BUN Creatinine Ratio 17.9 (6-22); Blood Urea Nitrogen 10 mg/dL (7-17); Calcium 9.1 mg/dL (8.4-10.2); Chloride 104 mmol/L (98-107); Estimated Glomerular Filt Rate > 60.0 mL/min (>60); Glucose 106 mg/dL (70-100); HEMOLYSIS < 15 (0-50); Potassium 4.1 mmol/L (3.4-5.1); Sodium 134 mmol/L (137-145)
[2020-11-18 12:58] LABS: Carbon Dioxide 25 mmol/L (22-32)
[2020-11-18 13:09] LABS: Free T4, Direct Thyroxine 0.88 ng/dL (0.78-2.19)
[2020-11-18 13:23] LABS: Thyroid Stimulating Hormone 1.33 uIU/mL (0.47-4.68)
== END ==
PROVIDERS: Referring Provider Obstetrics & Gynecology; Visit Provider Obstetrics & Gynecology
DX: O23.00 Infections of kidney in pregnancy, unspecified trimester (principal)
CPT/HCPCS: 36415; 80048; 84439; 84443

== ENCOUNTER → 2020-12-02 14:25 | Outpatient (CLI) | payer OTHER, SELFPAY ==
[2020-10-16 18:19] VITALS: BMI 26.2
--- NOTE | 2020-12-02 14:27 | DI.US.S_ITS ---
PROCEDURE: US OB LIMITED INDICATIONS: KIDNEY DILATION OUTSIDE/PRIOR DATING DATA: Last menstrual period (LMP): Not known. LMP-based estimated date of delivery (CARMITA): Not applicable. First dating scan (date and location): August 13, 2020. Estimated date of delivery (CARMITA) from first dating scan: January 18, 2021. TECHNIQUE: Real-time scanning was performed of the fetus, with image documentation. Endovaginal scanning: Performed COMPARISON: [facility], , OB LIMITED, 10/16/2020, 15:35. [facility], , US OB < 14 WEEKS, 09/11/2020, 0:54. FINDINGS: A single living intrauterine gestation is present. Presentation: Vertex Placenta: Placental position is anterior, without previa. Amniotic fluid index: 13.0 cm, normal range is 5-24 cm. heart rate: 169 beats per minute. Maternal cervical canal: Not well seen and cannot be evaluated. Estimated gestational age from initial scan: 33 weeks 2 days. Severely dilated right renal collecting system not significantly changed compared to October 16, 2020. Thin mantle of right renal cortex is noted. Dilated right ureter is not identified. Distended urinary bladder is noted early during the exam which is emptied later in the exam compatible with successful voiding. IMPRESSION: 1. Single living intrauterine . 2. Normal amniotic fluid index. 3. Severely dilated right renal collecting system not significantly changed compared to October 16, 2019. 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 Recommend referral to tertiary care center for possible in utero intervention. Dictated by: Gayathri Wilkins MD, PhD on 12/02/2020 at 15:42 Approved by: Gayathri Wilkins MD, PhD on 12/02/2020 at 15:54
== END ==
PROVIDERS: Referring Provider Obstetrics & Gynecology; Visit Provider Obstetrics & Gynecology
DX: O35.8XX0 Maternal care for other (suspected) fetal abnormality and damage, not applicable or unspecified (principal); Z3A.33 33 weeks gestation of pregnancy
CPT/HCPCS: 76815

== ENCOUNTER → 2020-12-23 16:02 | Outpatient (CLI) | payer OTHER, SELFPAY ==
[2020-10-16 18:19] VITALS: BMI 26.2
[2020-12-23 16:42] LABS: BUN Creatinine Ratio 26.7 (6-22); Blood Urea Nitrogen 16 mg/dL (7-17); Calcium 9.2 mg/dL (8.4-10.2); Carbon Dioxide 23 mmol/L (22-32); Chloride 107 mmol/L (98-107); Estimated Glomerular Filt Rate > 60.0 mL/min (>60); Glucose 94 mg/dL (70-100); HEMOLYSIS < 15 (0-50); Potassium 4.1 mmol/L (3.4-5.1); Sodium 134 mmol/L (137-145)
== END ==
PROVIDERS: Referring Provider Obstetrics & Gynecology; Visit Provider Obstetrics & Gynecology
DX: N13.30 Unspecified hydronephrosis (principal)
CPT/HCPCS: 36415; 80048

== ENCOUNTER → 2021-01-01 11:41 | Outpatient (CLI) | payer OTHER, SELFPAY ==
[2020-10-16 18:19] VITALS: BMI 26.2
[2021-01-03 08:21] LABS: Strep Grp B PCR POS for Grp B Strep
== END ==
PROVIDERS: Visit Provider Obstetrics & Gynecology
DX: Z34.83 Encounter for supervision of other normal pregnancy, third trimester (principal); Z3A.36 36 weeks gestation of pregnancy
CPT/HCPCS: 87653

== ENCOUNTER 2021-01-01 12:03 | Outpatient (CLI) | payer OTHER, SELFPAY ==
[2021-01-01 11:51] VITALS: BMI 26.2
--- NOTE | 2021-01-01 12:51 | P.TNLD_ITS ---
Visit Information Visit Information Date of evaluation: 01/01/21 Primary OB Provider: Susie Gann Reason for Evaluation: Yes non-stress test Comments/Additional reasons for admission: Patient is a 20-year-old 001 at 36 and 4 with both maternal and hydronephrosis, presenting for NST as general part of antepartum testing. Patient feeling well, BPP 8/8 in clinic. Vital Signs Vital Signs: Within normal limits [facility] Medical History (Updated 12/11/20 @ 16:45 by Susie Gann MD) Enlarged kidney (~06/2020) (normal spontaneous vaginal delivery) Surgical History (Updated 10/21/20 @ 13:39 by Bonny Mcdonald RN) History of dilatation and curettage (~12/2019) [place] teeth extracted (~2015) Family History (Updated 10/21/20 @ 14:51 by Bonny Mcdonald RN) Mother No problems noted. Father Bipolar 1 disorder Grandmother No problems noted. Grandfather Family estrangement Grandmother Cancer Grandfather Hypertension Anesthesia complication Family/Other Liver disease Family/Other Schizophrenia Social History marital status: household members: spouse lives independently: Yes caregiver/support person: No housing: house pets and animals: No education level: high school occupational status: employed current occupational exposures/hazards: No pam/voodoo: [employer]ism special pam needs: No seatbelt use: always Smoking Status: Never smoker second hand exposure: No alcohol intake: former substance use type: does not use during the past year weight has: remained stable caffeine: Yes (Normally likes tea, but none now due to kidney issues.) Type(s) of exercise: walking, other and normal ROM and activity frequency: 1-2 times per week duration: 30-45 minutes/day Evaluation Evaluation Baseline heart rate: 130 Variability: Moderate (11-25) monitor accelerations: Present monitor decelerations: Absent Category of Tracing: Reactive Status: Category l Diagnosis, Plan/Disposition Plan/Disposition Plan: Home with scheduled follow-up. OB Disposition: home
== END 2021-01-01 12:50 | disposition home or self-care (01) ==
LOC: OB 01-04 07:32
PROVIDERS: Referring Provider Obstetrics & Gynecology; Visit Provider Obstetrics & Gynecology
DX: O99.891 Other specified diseases and conditions complicating pregnancy (principal); O36.8930 Maternal care for other specified fetal problems, third trimester, not applicable or unspecified; N13.30 Unspecified hydronephrosis; Z3A.36 36 weeks gestation of pregnancy
CPT/HCPCS: 59025; 87653; G0378; G0379

== ENCOUNTER 2021-01-07 14:22 | Outpatient (CLI) | payer OTHER, SELFPAY ==
--- NOTE | 2021-01-07 16:10 | P.TNLD_ITS ---
Visit Information Visit Information Date of evaluation: 01/07/21 Primary OB Provider: Susie Gann Reason for Evaluation: Yes non-stress test Comments/Additional reasons for admission: Patient is a 20-year-old 001 at 37 + 3 with both maternal and hydronephrosis, presenting for NST as general part of antepartum testing. Patient feeling well, BPP 8/8 in clinic. Vital Signs Vital Signs: 112/76 [facility] Medical History (Updated 12/11/20 @ 16:45 by Susie Gann MD) Enlarged kidney (~06/2020) (normal spontaneous vaginal delivery) Surgical History (Updated 10/21/20 @ 13:39 by Bonny Mcdonald RN) History of dilatation and curettage (~12/2019) [place] teeth extracted (~2015) Family History (Updated 10/21/20 @ 14:51 by Bonny Mcdonald RN) Mother No problems noted. Father Bipolar 1 disorder Grandmother No problems noted. Grandfather Family estrangement Grandmother Cancer Grandfather Hypertension Anesthesia complication Family/Other Liver disease Family/Other Schizophrenia Social History marital status: household members: spouse lives independently: Yes caregiver/support person: No housing: house pets and animals: No education level: high school occupational status: employed current occupational exposures/hazards: No pam/hindu: [employer]ism special pam needs: No seatbelt use: always Smoking Status: Never smoker second hand exposure: No alcohol intake: former substance use type: does not use during the past year weight has: remained stable caffeine: Yes (Normally likes tea, but none now due to kidney issues.) Type(s) of exercise: walking, other and normal ROM and activity frequency: 1-2 times per week duration: 30-45 minutes/day Evaluation Evaluation Baseline heart rate: 130 Variability: Moderate (11-25) monitor accelerations: Present monitor decelerations: Absent Contraction Frequency (minutes): 6 Category of Tracing: Reactive Status: Category l Diagnosis, Plan/Disposition Plan/Disposition Plan: Home with routine precautions. Declines cervical exam. OB Disposition: home
== END 2021-01-07 15:39 | disposition home or self-care (01) ==
LOC: LABOR 15:39 → OB 01-11 06:46
PROVIDERS: Referring Provider Obstetrics & Gynecology; Visit Provider Obstetrics & Gynecology
DX: O36.8930 Maternal care for other specified fetal problems, third trimester, not applicable or unspecified (principal); O99.891 Other specified diseases and conditions complicating pregnancy; N13.30 Unspecified hydronephrosis; Z3A.37 37 weeks gestation of pregnancy
CPT/HCPCS: 59025; G0378; G0379

== ENCOUNTER 2021-01-15 08:58 | Outpatient (CLI) | payer OTHER, SELFPAY | END 2021-01-15 10:02 | disposition home or self-care (01) | LOC: LABOR 09:39 → OB 01-18 06:58 | PROVIDERS: Referring Provider Obstetrics & Gynecology; Visit Provider Obstetrics & Gynecology | DX: Z34.83 Encounter for supervision of other normal pregnancy, third trimester (principal); Z3A.38 38 weeks gestation of pregnancy | CPT/HCPCS: 59025; G0378; G0379 ==

== ENCOUNTER 2021-01-16 06:38 | Outpatient (CLI) | payer OTHER, SELFPAY ==
--- NOTE | 2021-01-16 09:37 | PM.OBTRLD ---
Visit Information Visit Information Date of evaluation: 01/16/21 Primary OB Provider: Susie Gann On-call OB Provider: Kitty Muñoz Reason for Evaluation: Yes rule out labor Comments/Additional reasons for admission: Patient came with her due to increasing frequency and intensity of contractions overnight. Prior to contractions were minutes. Patient reports good movement and denies leaking or bleeding. Vital Signs Vital Signs: Temperature 36.3? blood pressure 118/80 heart rate 70 PFSH Medical History (Updated 12/11/20 @ 16:45 by Susie Gann MD) Enlarged kidney (~06/2020) (normal spontaneous vaginal delivery) Surgical History (Updated 10/21/20 @ 13:39 by Bonny Mcdonald RN) History of dilatation and curettage (~12/2019) [place] teeth extracted (~2015) Family History (Updated 10/21/20 @ 14:51 by Bonny Mcdonald RN) Mother No problems noted. Father Bipolar 1 disorder Grandmother No problems noted. Grandfather Family estrangement Grandmother Cancer Grandfather Hypertension Anesthesia complication Family/Other Liver disease Family/Other Schizophrenia Social History marital status: household members: spouse lives independently: Yes caregiver/support person: No housing: house pets and animals: No education level: high school occupational status: employed current occupational exposures/hazards: No pam/latter-day: [employer] special pam needs: No seatbelt use: always Smoking Status: Never smoker second hand exposure: No alcohol intake: former substance use type: does not use during the past year weight has: remained stable caffeine: Yes (Normally likes tea, but none now due to kidney issues.) Type(s) of exercise: walking, other and normal ROM and activity frequency: 1-2 times per week duration: 30-45 minutes/day Evaluation Evaluation Baseline heart rate: 130 Variability: Moderate (11-25) monitor accelerations: Present monitor decelerations: Absent Contraction Frequency (minutes): 8 Uterine Contraction Intensity: Mild Category of Tracing: Reactive Cervical dilation (cm): 1 Cervical effacement (%): 25 station: -4 Diagnosis, Plan/Disposition Plan/Disposition Plan: 20year at 38 weeks and 5 days gestation here for labor check. Contractions spaced out upon arrival to the center. NST reactive. RN was concerned about position due to high station on cervical exam and heart tones found higher the abdomen. Position checked by ultrasound showed fetus to be vertex. Patient will stay in town and walk over the next couple hours and return if contractions increase. OB Disposition: home
== END 2021-01-16 08:02 | disposition home or self-care (01) ==
LOC: LABOR 06:48 → OB 01-18 06:58
PROVIDERS: Referring Provider Family Medicine; Visit Provider Family Medicine
DX: O47.1 False labor at or after 37 completed weeks of gestation (principal); Z3A.38 38 weeks gestation of pregnancy
CPT/HCPCS: 59025; 76815; G0378; G0379

== ENCOUNTER 2021-01-16 18:55 | Inpatient (IN) | payer OTHER, SELFPAY ==
--- NOTE | 2021-01-16 19:27 | PM.OBHP.1 ---
OB HPI Date/Time Date of admission: 01/16/21 Date Patient Seen: 01/16/21 Time Patient Seen: 19:35 History of Present Condition Chief complaint: Eval Of Labor : 3 Para: 1 Estimated Date of Delivery: 01/25/21 Estimated Gestational Age (weeks): 38w5d Narrative: Carmen Beltre is a 20 year old at 38 weeks and 5 days in active labor. Contractions have been building throughout the day. Denies bleeding or leaking of fluid and reports good movement. She was followed by MFM for severe right hydronephrosis and also consulted with pediatric urology. The recommendation is a renal US in the first 48-72 hours of life and to see pediatric urology within the first week of life. She was hospitalized in October of this year with pyelonephritis/UTI and continued on prophylactic Keflex. Plan is to follow up with urology . Transferred care from the [facility] at 26 weeks. Also on iron for anemia. History of Present care: none Dating criteria: LMP confirmed by 2nd trimester US Ultrasounds: abnormal US findings (severe right hydronephrosis and horseshoe kidney, normal left kidney) Obstetrical complications: none Medical complications: none Preadmission Labs Blood type: O (+) positive -: Antibody screen: negative, GBS status: positive, HBsAG: negative, HIV: negative and RPR/VDLR: negative -: Chlamydia screen: not detected and Gonorrhea screen: not detected -: Rubella: immune and Varicella: immune HCT: 30.2 HCAB: negative PAP: Abnormal (ASCUS) Urine: On prophylactic Keflex for UTI 1 hr GTT: 86 Prior (ies) History: 06/02/17 at 39 weeks, 4 hour labor, epidural, 6 lb 14 oz male, breast fed 3 months, placenta previa (resolved prior to delivery). [place], [place]. 12/15/19 SAB 7 wks, [place]. Evaluation Evaluation Baseline heart rate: 120 Variability: Moderate (11-25) monitor accelerations: Present monitor decelerations: Absent Contraction Frequency (minutes): 4 Status: Category l Cervical dilation (cm): 4 Cervical effacement (%): 80 station: -1 [facility] Medical History Enlarged kidney (~06/2020) (normal spontaneous vaginal delivery) Surgical History History of dilatation and curettage (~12/2019) [place] teeth extracted (~2015) Family History Mother No problems noted. Father Bipolar 1 disorder Grandmother No problems noted. 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 special pam needs: No seatbelt use: always Smoking Status: Never smoker second hand exposure: No alcohol intake: former substance use type: does not use during the past year weight has: remained stable caffeine: Yes (Normally likes tea, but none now due to kidney issues.) Type(s) of exercise: walking, other and normal ROM and activity frequency: 1-2 times per week duration: 30-45 minutes/day Meds Home Medications and Allergies Home Medications Medication Instructions Recorded Confirmed Type prenat.vits,hilary,[id number] 1 tab PO DAILY 10/16/20 11/26/20 History cefdinir 300 mg PO BID #30 cap 10/19/20 11/26/20 Rx acetaminophen 325 mg tablet 325 mg PO ONCE PRN 10/21/20 11/26/20 History docusate sodium 100 mg capsule 100 mg PO BID PRN #60 cap 10/21/20 11/26/20 Rx ondansetron HCl 4 mg tablet 4 mg PO Q6H PRN #20 tab 10/21/20 11/26/20 Rx ferrous gluconate 324 mg (37.5 mg 324 mg PO BID #60 tab 10/26/20 11/26/20 Rx iron) tablet nitrofurantoin 100 mg PO DAILY #30 cap 10/26/20 11/26/20 Rx monohydrate/macrocrystals 100 mg capsule cephalexin 500 mg capsule 500 mg PO DAILY #60 cap 12/27/20 12/27/20 Rx Allergies Allergy/AdvReac Type Severity Reaction Status Date / Time No Known Drug Allergies Allergy Verified 10/16/20 13:54 Review of Systems Review of Systems ROS: Yes All systems reviewed with the patient and are negative except as otherwise documented Exam Vital Signs (past 8 hours): T 36.3 BP 119/81 P 81 Const General: healthy appearing and in distress (coping well with contractions) HENMT Head: normal to inspection Ears: hearing grossly normal bilaterally Eyes General: appearance normal, both eyes and all related structures Neck Neck: normal visual inspection Resp Effort & Inspection: normal respiratory effort Cardio Rate: regular rate Rhythm: regular rhythm GI Other: Gravid External Female Exam: normal external appearance Manual OB Exam: dilated 4, effaced (80) and station -1 Presentation: vertex Estimated Weight (lbs): 6 Back/Spine/Pelvis Back: normal to inspection Skin General: no rashes or lesions noted Extrem General: normal to inspection and no pedal edema Assessment and Plan Assessment and Plan Assessment and Plan narrative: 20 year old at 38 weeks and 5 days gestation in active labor. GBS positive with reported 4 hour first labor. complicated by right hydronephrosis followed by MFM and pediatric urology. Recommendation is for renal US of in the first 48-72 hours of life and follow up with pediatric urology in the first week of life. Plan Admit for labor PCN for GBS prophylaxis Epidural upon request Anticipate Baby will need renal US within first 48 hours of life
[2021-01-16] MEDS: LACTATED RINGERS 1,000 ML 100 ML IV (20:00)
[2021-01-16] MEDS: PENICILLIN G POTASSIUM 5,000,000 UNIT in DEXTROSE 5% IN WATER 250 ML IV (20:00)
[2021-01-16 20:03] LABS: Add Manual Diff / Slide Review NO; Basophils Absolute Auto 100 /uL (0-100); Basophils Percent Auto 0.6 % (0-2); Eosinophils Absolute Auto 100 /uL (0-450); Eosinophils Percent Auto 0.7 % (2-4); Hematocrit 34.2 % (36-46); Hemoglobin 11.1 g/dL (12.0-16.0); Lymphocytes Absolute Auto 2100 /uL (1100-4500); Lymphocytes Percent Auto 20.1 % (25-40); Mean Corpuscular HGB Conc 32.6 % (30-36); Mean Corpuscular Hemoglobin 27.1 PG (26-34); Monocytes Absolute Auto 600 /uL (0-900); Monocytes Percent Auto 5.3 % (3-14); Neutrophils Absolute Auto 7700 /uL (1500-7000); Neutrophils Percent Auto 73.3 % (50-75); Platelet Count 295 X10^3/uL (150-400); Red Blood Cell Count 4.12 X10^6/uL (4.0-5.2); Red Cell Distribution Width 15.7 % (11.6-14.8); White Blood Cell Count 10.6 X10^3/uL (4.5-11.0)
[2021-01-16 21:24] LABS: COVID19 - ADMIT (NP swab/PCR) Negative (Negative)
--- NOTE | 2021-01-16 22:06 | PM.OBPRVD ---
Labor & Delivery Delivery date: 01/16/21 Delivery augmentation: rupture of membranes Delivery monitor: external FHT Route of delivery: L&D Laceration Description: None Estimated blood loss (mL): 100 Anesthesia Type: Epidural Narrative: Patient is a 20-year-old at 38 weeks and 5 days gestation who gave on 01/16/21 at 21:49. CARMITA: 01/25/21 Hospital problems: 38 weeks of GBS positive STAGE I: Labor Patient presented to the center in active labor at 19:00. Strong contractions began at approximately 18:20 prior to arrival. She received an epidural with adequate pain control. Penicillin was also given for GBS prophylaxis. Time allowed for only one dose prior to delivery. Artificial rupture of membranes occurred at 21:10 with clear fluid. She was completely dilated at the time of rupture and feeling pressure to push. FHT were category 1 throughout stage 1. State 1 duration 2 hours and 50 minutes. STAGE II: Delivery The second stage of labor lasted 40 minutes. Spontaneous vaginal delivery of a vigorous female infant occurred at 21:49. Infant was vertex and JAVIER. was placed on mother's abdomen. Cord was clamped and cut after 1 minute delay. Apgars were 8 and 9. No resuscitation of the required. STAGE III: Placenta/Cord Placenta delivered at 21:54 after active management and appeared intact with a 3 vessel cord and true know. Placenta had moderate calcifications. 20 units of pitocin given in remaining IV fluids after delivery of placenta. Fundus was firm well below umbilicus. There were no vaginal or perineal lacerations. EBL: 100 mL. Needle and sponge counts were correct. The vagina was inspected and no items were left in situ. Patient was doing well with Jeannie, her and at bedside. [place] Baby 1: Infant gender: Female Presentation: vertex Position: Right Occiput Anterior Placenta delivery description: Spontaneous Cord Vessel Description: 3 Vessels and True Knot score (1 min): 8 score (5 min): 9
[2021-01-16] MEDS: OXYTOCIN 10 UNIT/ML VIAL 20 UNIT (22:26)
[2021-01-17 06:03] LABS: Hematocrit 30.4 % (36-46); Hemoglobin 9.9 g/dL (12.0-16.0)
[2021-01-17] MEDS: ACETAMINOPHEN 325 MG TABLET 650 MG PO (07:33)
[2021-01-17] MEDS: DOCUSATE 100 MG CAPSULE PO (08:20)
[2021-01-17] MEDS: PRENATAL VIT,CALC/IRON/FOLIC 1 TABLET 1 TAB PO (08:20)
[2021-01-17] MEDS: IBUPROFEN 600 MG TABLET PO ×2 (08:27→20:07)
--- NOTE | 2021-01-17 09:53 | PM.OBPN.1 ---
Subjective - OB Subjective Patient comments: no complaints, pain well controlled and tolerating diet baby status: doing well and nursing well feeding status: exclusively breast feeding Date Patient Seen: 01/17/21 Time Patient Seen: 09:15 Interval history: No complaints. Vaginal bleeding is similar to a menstrual cycle in decreasing. Pain controlled ibuprofen. Patient has been about of bed and voided without difficulty. Breast-feeding going. Exam Vital Signs (past 8 hours): Temperature 98.6? blood pressure 120/70 heart rate 72 respirations 12 Narrative Exam Narrative: General: Awake and alert, no acute distress. HEENT: NCAT, EOMI, moist oral mucosa CV: Regular rate and rhythm, no murmurs, rubs or gallops Lungs: CTAB, no wheezes, rales, or rhonchi Abdomen: Soft, nontender; bowel tones active; uterus firm 1 cm below umbilicus Extremities: Warm, no edema, 2+ pedal pulses bilaterally Objective Labs Result Diagrams: 01/17/21 05:30 Labs: Laboratory Results - last 24 hr 01/16/21 01/16/21 01/16/21 19:15 19:15 19:15 WBC 10.6 RBC 4.12 Hgb 11.1 L Hct 34.2 L MCV 83.0 MCH 27.1 MCHC 32.6 RDW 15.7 H Plt Count 295 Neut % (Auto) 73.3 Lymph % (Auto) 20.1 L [place] % (Auto) 5.3 Eos % (Auto) 0.7 L Baso % (Auto) 0.6 Neut # (Auto) 7700 H Lymph # (Auto) 2100 [place] # (Auto) 600 Eos # (Auto) 100 Baso # (Auto) 100 SARS-CoV-2 (PCR) Negative Blood Type O Positive Antibody Screen Negative 01/17/21 05:30 WBC RBC Hgb 9.9 L Hct 30.4 L MCV MCH MCHC RDW Plt Count Neut % (Auto) Lymph % (Auto) [place] % (Auto) Eos % (Auto) Baso % (Auto) Neut # (Auto) Lymph # (Auto) [place] # (Auto) Eos # (Auto) Baso # (Auto) SARS-CoV-2 (PCR) Blood Type Antibody Screen Assessment & Plan Assessment and Plan (1) Spontaneous vaginal delivery: Status: Acute (2) 38 weeks gestation of : Status: Acute Plan day: 1 plan OB: routine care Comments: Doing without complications. Anticipate discharge. Time Spent With Patient Time: Total time spent is greater than 50% in coordination of care (as documented) at patient's floor/unit and/or counseling patient: Time with patient: less than 15 minutes
[2021-01-17] MEDS: OXYCODONE IR 5 MG TABLET PO (20:06)
[2021-01-18] MEDS: ACETAMINOPHEN 325 MG TABLET 650 MG PO ×2 (00:02→10:49)
[2021-01-18] MEDS: OXYCODONE IR 5 MG TABLET PO ×2 (00:03→04:36)
[2021-01-18] MEDS: IBUPROFEN 600 MG TABLET PO ×2 (04:35→10:49)
--- NOTE | 2021-01-18 08:38 | PM.OBDS.1 ---
Discharge Providers Provider Date of admission: 01/16/21 18:55 Discharge Date: 01/18/21 Primary care physician: Doctor Henry MD Consults: 01/17/21 22:08 Consult to Donor Recruitment Manager Routine Comment: Discharge provider: Susie Gann MD Summary Hospital Course Date Patient Seen: 01/18/21 Time Patient Seen: 08:38 Diagnoses: Term vaginal delivery Hospital Course: This patient was admitted in active labor and underwent an uncomplicated vaginal delivery at term. Her recovery was uncomplicated, and she was discharged on day 2 with routine precautions. Patient has a history of pyelonephritis and hydronephrosis for herself as well as for baby, has planned follow-up with Urology at 6 weeks after appropriate imaging as previously discussed. Peripartum Data Infant Delivery Method: Natural Vaginal Laceration Description: None complications: none Jeannie: Gender: Female Disposition of : home Discharge Diagnosis (1) Spontaneous vaginal delivery: Status: Acute (2) 38 weeks gestation of : Status: Acute Status at Discharge Cognitive/behavioral status at discharge: oriented Functional status at discharge: independent ambulation Overall status at discharge: patient is progressing back to baseline Time Spent with Patient Time attestation: Total time spent providing and/or coordinating discharge services: Objective Labs Result Diagrams: 01/17/21 05:30 Exam Vital Signs (past 8 hours): 118/81, heart rate 71, afebrile Narrative Exam Narrative: Patient resting in bed, . Reports ambulating, voiding, passing flatus, moderate lochia, good pain control. No chest pain, trouble breathing, PIH symptoms. Resp Effort & Inspection: normal respiratory effort Auscultation: clear to auscultation bilaterally Cardio Rate: regular rate Rhythm: regular rhythm GI Palpation: soft and No tender Extrem General: normal to inspection Discharge Plan Discharge Plan Patient Disposition: Home Discharge orders & Medications Prescriptions: Continued nitrofurantoin monohyd/m-cryst [Macrobid] 100 mg capsule 100 mg PO DAILY Qty: 30 RF: 0 ferrous gluconate 324 mg (37.5 mg iron) tablet 324 mg PO BID Qty: 60 RF: 2 cephalexin 500 mg capsule 500 mg PO DAILY Qty: 60 RF: 2 acetaminophen [Tylenol] 325 mg tablet 325 mg PO ONCE PRNRF: 0 ondansetron HCl [Zofran] 4 mg tablet 4 mg PO Q6H PRN (Reason: nausea and vomiting) Qty: 20 RF: 1 docusate sodium [Colace] 100 mg capsule 100 mg PO BID PRN (Reason: constipation) Qty: 60 RF: 1 prenat.vits,hilary,kzw-[id number] Tablet 1 tab PO DAILY RF: 0 cefdinir 300 mg capsule 300 mg PO BID Qty: 30 RF: 2 Follow up/Referrals: Doctor Figueroa MD [Primary Care Provider] - ProspectSusie MD [Physician] - Diet/Activity/Treatments Diet: Regular Activity: Nothing in the vagina for 6 weeks. Avoid heavy lifting for 6 weeks. If you have increasing bleeding, fevers, chills, nausea, vomiting, or any other symptoms or concerns, call or come to the emergency room. Skin/Wound/Dressing Care Report to your healthcare provider any signs of infection, such as:: chills, fever, night sweats, increased pain, unusual drainage and unusual redness Visit Report/Discharge Packet Instructions: DI for Labor and Delivery, Vaginal Discharge Data Primary Care Provider: Doctor Henry
[2021-01-18] MEDS: DOCUSATE 100 MG CAPSULE PO (10:49)
[2021-01-18] MEDS: PRENATAL VIT,CALC/IRON/FOLIC 1 TABLET 1 TAB PO (10:49)
[2021-01-18 11:18] VITALS: BP 120/69; PULSE 80; RESP 16; TEMP 36.6
== END 2021-01-18 14:10 | disposition home or self-care (01) | DRG 806 ==
PROVIDERS: Admitting Provider Family Medicine; Referring Provider Family Medicine; Visit Provider Family Medicine
DX: O99.824 Streptococcus B carrier state complicating childbirth (principal); O98.82 Other maternal infectious and parasitic diseases complicating childbirth; Z37.0 Single live birth; O75.3 Other infection during labor; N15.9 Renal tubulo-interstitial disease, unspecified; B96.89 Other specified bacterial agents as the cause of diseases classified elsewhere; Z3A.38 38 weeks gestation of pregnancy; O99.03 Anemia complicating the puerperium; D64.9 Anemia, unspecified; Z20.822 Contact with and (suspected) exposure to COVID-19
CPT/HCPCS: 01967; 36415; 59025; 59050; 59409; 59410; 76815; 85014; 85018; 85025; 86850; 86900; 86901; 87635; G0379; J2540; J2590

== ENCOUNTER → 2021-03-08 11:53 | Outpatient (CLI) | payer OTHER, SELFPAY ==
--- NOTE | 2021-03-08 11:54 | DI.CT.S_ITS ---
PROCEDURE: CT KIDNEY URETER BLADDER (KUB) INDICATIONS: pyelonephritis TECHNIQUE: Noncontrast 5 mm thick sections acquired from the diaphragms to the symphysis. 5 mm thick coronal and sagittal reformats were then performed. For radiation dose reduction, the following was used: automated exposure control, adjustment of mA and/or kV according to patient size. COMPARISON: None. FINDINGS: Image quality: Excellent. Lung bases: Lung bases are clear. Heart size is normal. Urinary system: Both kidneys are normal in size. Each kidney contains 2-3 nonobstructive 1 mm punctate urinary tract stones . No hydronephrosis or perinephric fat stranding. Both ureters appear non-dilated throughout their expected courses. Bladder wall thickness is normal; no calcified bladder stones. Other solid organs: Liver is normal in size. Gallbladder appears normal . Pancreas is normal in contours. Spleen is normal in size. No adrenal nodules. Peritoneum and bowel: Unenhanced bowel loops demonstrate normal wall thickness and caliber. No free fluid or air. Nodes and vessels: No retroperitoneal or mesenteric adenopathy by size criteria. Aorta and inferior vena cava are normal in caliber. Abdominal wall: No ventral hernias. Pelvis: No free pelvic fluid. No inguinal hernias or adenopathy. Bones: No suspicious bony lesions. No vertebral body compression fractures. IMPRESSION: Several bilateral nonobstructive punctate 1 mm calculi are present within the collecting system of each kidney, and the urinary tract elsewhere appears normal. Dictated by: Kike Antonio M.D. on 03/08/2021 at 16:45 Approved by: Kike Antonio M.D. on 03/08/2021 at 16:47
== END ==
PROVIDERS: Referring Provider Obstetrics & Gynecology; Visit Provider Obstetrics & Gynecology
DX: O23.02 Infections of kidney in pregnancy, second trimester (principal); N13.30 Unspecified hydronephrosis
CPT/HCPCS: 74176

== ENCOUNTER 2023-02-16 10:19 | Emergency (ER) | payer OTHER, SELFPAY ==
[2023-02-16 10:28] VITALS: BP 126/82; PULSE 125; RESP 14; TEMP 36.8; O2SAT 100; BMI 25.4
--- NOTE | 2023-02-16 10:53 | DI.CT.S_ITS ---
PROCEDURE: CT KIDNEY URETER BLADDER (KUB) INDICATIONS: R flank pain TECHNIQUE: Axial sections were acquired from the lung bases to the pubic symphysis. Coronal and sagittal reformats were performed. For radiation dose reduction, the following was used: automated exposure control, adjustment of mA and/or kV according to patient size. COMPARISON: [facility], CT, CT KIDNEY URETER BLADDER (KUB), 03/08/2021, 12:04. FINDINGS: Image quality: Excellent. Lung bases: Unremarkable. Heart: No significant findings. URINARY: Right Kidney: There are few tiny 1 mm calculi. No hydronephrosis. Right Ureter: No hydroureter. Left Kidney: There are a few tiny 1 mm calculi. No hydronephrosis. Left Ureter: No hydroureter. Bladder: Normal wall thickness. No stones. ABDOMEN: Liver: Unremarkable. Gallbladder: Unremarkable. Biliary ducts: Unremarkable. Pancreas: Unremarkable. Spleen: Unremarkable. Adrenal Glands: Unremarkable. Stomach and Bowel: Stomach, small bowel loops, and colon are unremarkable. Appendix is normal. Peritoneum: No abnormal intraperitoneal fluid. No free air. Ventral Wall: No hernia. Abdominal Nodes: No enlarged retroperitoneal or mesenteric lymph nodes. Vessels: Aorta and inferior vena cava are normal in size. PELVIS: Pelvic Organs: There is an IUD in uterus. Bilateral ovarian cysts are likely dominant follicles. No free fluid in pelvis. Pelvic Nodes: Unremarkable. Miscellaneous: No inguinal hernias are seen. Bones: Unremarkable. IMPRESSION: 1. Bilateral tiny 1 mm nonobstructive renal calculi. No hydronephrosis. 2. Normal appendix. 3. Bilateral ovarian cysts are probably dominant follicles. Dictated by: Easton Denton M.D. on 02/16/2023 at 11:11 Approved by: Easton Denton M.D. on 02/16/2023 at 11:18
--- NOTE | 2023-02-16 10:55 | ED_ITS ---
HPI - General Adult General Chief complaint: Urogenital-Female Stated complaint: sent by [facility] [place]/kidney pain/dark urine/HX of Sepsis Time Seen by Provider: 02/16/23 10:30 Source: patient Mode of arrival: Ambulatory Limitations: no limitations History of Present Illness HPI narrative: Patient is a 22-year-old female who was sent here to the emergency department for evaluation of right flank pain and also dark colored urine. She stated that she started to feel the symptoms yesterday but it was worsened today. She also has dark urine. No specific dysuria. No vaginal bleeding. No fevers. No vomiting. She has had a history of kidney stones in the past. She states this does not quite feel like prior stone. Also has had a kidney infection in the past. Related Data Home Medications Medication Instructions Recorded Confirmed prenat.vits,hilary,fey-oeqj-iatat 1 tab PO DAILY 10/16/20 05/06/21 acetaminophen 325 mg tablet 325 mg PO ONCE PRN Pain (Scale 10/21/20 05/06/21 (Tylenol) Score 1-3) Previous Rx's Medication Instructions Recorded sertraline 50 mg tablet 50 mg PO DAILY #30 tabs 03/30/21 Allergies Allergy/AdvReac Type Severity Reaction Status Date / Time No Known Drug Allergies Allergy Verified 02/16/23 10:32 Review of Systems Constitutional Constitutional: Reports system reviewed and no additional complaints, except as documented Gastrointestinal Gastrointestinal: Reports system reviewed and no additional complaints, except as documented Genitourinary Genitourinary: Reports system reviewed and no additional complaints, except as documented Musculoskeletal Musculoskeletal: Reports system reviewed and no additional complaints, except as documented Integumentary/Breasts Skin/Breast: Reports system reviewed and no additional complaints, except as documented Hematologic/Lymphatic On Anticoagulants: No Patient History Medical History Enlarged kidney (~06/2020) (normal spontaneous vaginal delivery) Pyelonephritis affecting (~06/2020) Spontaneous vaginal delivery Surgical History History of dilatation and curettage (~12/2019) [place] teeth extracted (~2015) Family History Mother No problems noted. Father Bipolar 1 disorder Grandmother No problems noted. Grandfather Family estrangement Grandmother Cancer Grandfather Hypertension Anesthesia complication Family/Other Liver disease Family/Other Schizophrenia Social History marital status: household members: spouse lives independently: Yes caregiver/support person: No housing: house pets and animals: No education level: high school occupational status: employed current occupational exposures/hazards: No pam/druze: [employer] special pam needs: No seatbelt use: always Smoking Status: Never smoker second hand exposure: No alcohol intake: former substance use type: does not use during the past year weight has: remained stable caffeine: Yes (Normally likes tea, but none now due to kidney issues.) Type(s) of exercise: walking, other and normal ROM and activity frequency: 1-2 times per week duration: 30-45 minutes/day Smoking Status: Never smoker alcohol intake frequency: holidays/special occasions only Substance Use Type: does not use Exam Initial Vital Signs Initial Vital Signs: Vital Signs Temperature 98.3 F 02/16/23 10:28 Pulse Rate 125 H 02/16/23 10:28 Respiratory Rate 14 02/16/23 10:28 Blood Pressure 126/82 02/16/23 10:28 Pulse Oximetry 100 02/16/23 10:28 Oxygen Delivery Method Room Air 02/16/23 10:28 Const General: cooperative and comfortable HENMT Head: normal to inspection Resp Effort & Inspection: normal respiratory effort Cardio Rate: regular rate GI Inspection: normal to inspection Palpation: soft, No firm and No tender Back/Spine/Pelvis Back: CVA tenderness right Skin General: no rashes or lesions noted Neuro General: patient alert and patient awake Extrem General: normal to inspection and capillary refill normal Course Orders Ordered: ED Orders 02/16/23 10:53 CT kidney ureter bladder (KUB) Stat 02/16/23 11:30 Basic Metabolic Panel Stat Complete Blood Count AUTO DIFF Stat Vital Signs Vital signs: Vital Signs - 8 hr 02/16/23 10:28 Temperature 98.3 F Pulse Rate 125 H Respiratory Rate 14 Blood Pressure 126/82 Pulse Oximetry 100 Oxygen Delivery Method Room Air Medical Decision Making Lab Data Lab results reviewed: Yes I reviewed the patient's lab results. 02/16/23 11:30 02/16/23 11:30 Labs: Lab Results 02/16/23 02/16/23 Range/Units 11:30 11:30 WBC 7.0 (4.5-11.0) X10^3/uL RBC 4.45 (4.0-5.2) X10^6/uL Hgb 13.1 (12.0-16.0) g/dL Hct 37.1 (36-46) % MCV 83.5 (80-100) fL MCH 29.4 (26-34) PG MCHC 35.2 (30-36) % RDW 12.9 (11.6-14.8) % Plt Count 241 (150-400) X10^3/uL Neut % (Auto) 79.1 H (50-75) % Lymph % (Auto) 12.8 L (25-40) % [place] % (Auto) 7.2 (3-14) % Eos % (Auto) 0.8 L (2-4) % Baso % (Auto) 0.1 (0-2) % Neut # (Auto) 5600 (0863-0173) /uL Lymph # (Auto) 900 L (4310-7486) /uL [place] # (Auto) 500 (0-900) /uL Eos # (Auto) 100 (0-450) /uL Baso # (Auto) 0 (0-100) /uL Sodium 137 (137-145) mmol/L Potassium 3.6 (3.4-5.1) mmol/L Chloride 104 (98-107) mmol/L Carbon Dioxide 23 (22-32) mmol/L BUN 9 (7-17) mg/dL Creatinine 0.58 (0.52-1.04) mg/dL Estimated GFR > 60 (>60) mL/min BUN/Creatinine Ratio 15.5 (6-22) Glucose 89 (70-100) mg/dL Calcium 8.5 (8.4-10.2) mg/dL Point of Care Testing Test Results Negative Urine Dip Bedside Urine Glucose Negative Bedside Urine Bilirubin - Negative Bedside Urine Ketone - Negative Urine Specific [place] 1.015 Bedside Urine Occult Blood - Negative Bedside Urine pH 6.0 Bedside Urine Protein - Negative Bedside Urine Urobilinogen - Negative Bedside Urine Nitrite - Negative Bedside Urine Leukocytes - Negative Esterase Point of care testing: Point of Care Testing Test Results Negative Urine Dip Bedside Urine Glucose Negative Bedside Urine Bilirubin - Negative Bedside Urine Ketone - Negative Urine Specific [place] 1.015 Bedside Urine Occult Blood - Negative Bedside Urine pH 6.0 Bedside Urine Protein - Negative Bedside Urine Urobilinogen - Negative Bedside Urine Nitrite - Negative Bedside Urine Leukocytes - Negative Esterase Imaging Data CT scan - abdomen/pelvis: Radiologist's Impression: PROCEDURE:? CT KIDNEY URETER BLADDER (KUB) ? INDICATIONS:? R flank pain ? TECHNIQUE:? Axial sections were acquired from the lung bases to the pubic symphysis.? Coronal and sagittal reformats were performed.? For radiation dose reduction, the following was used: ?automated exposure control, adjustment of mA and/or kV according to patient size.? ? COMPARISON:? [facility], CT, CT KIDNEY URETER BLADDER (KUB), 03/08/2021, 12:04. ? FINDINGS:? Image quality:? Excellent.? ? Lung bases:? Unremarkable.? ? Heart:? No significant findings. ? URINARY: Right Kidney:? There are few tiny 1 mm calculi.? No hydronephrosis.? Right Ureter:? No hydroureter.? ? Left Kidney:? There are a few tiny 1 mm calculi.? No hydronephrosis.? Left Ureter:? No hydroureter.? ? Bladder:? Normal wall thickness. No stones. ? ? ? ABDOMEN: Liver:? Unremarkable.? ? Gallbladder:? Unremarkable.? ? Biliary ducts:? Unremarkable.? ? Pancreas:? Unremarkable.? ? Spleen:? Unremarkable.? ? Adrenal Glands:? Unremarkable.? ? ? Stomach and Bowel:? Stomach, small bowel loops, and colon are unremarkable.? Appendix is normal. Peritoneum:? No abnormal intraperitoneal fluid.? No free air.? ? Ventral Wall: ? No hernia.? Abdominal Nodes:? No enlarged retroperitoneal or mesenteric lymph nodes.? Vessels:? Aorta and inferior vena cava are normal in size.? ? PELVIS: Pelvic Organs:? There is an IUD in uterus.? Bilateral ovarian cysts are likely dominant follicles.? ? No free fluid in pelvis. Pelvic Nodes: Unremarkable. Miscellaneous: No inguinal hernias are seen. ? ? ? Bones:? Unremarkable. ? IMPRESSION:? ? 1.? Bilateral tiny 1 mm nonobstructive renal calculi.? No hydronephrosis. ? 2. Normal appendix. ? 3. Bilateral ovarian cysts are probably dominant follicles.? MDM Narrative Medical decision making narrative: Patient's exam is unremarkable. CT scan is unremarkable. Labs are unremarkable. test is negative. No signs of kidney stone. No signs of pyelo. CT scan did not show any signs of appendicitis. I have low suspicion that the punctate stones located in the kidneys are the cause of her symptoms today. I did discuss all this with her. No further workup required in the emergency department. She was given return precautions. She expressed understanding and agreement with plan. Discharge Plan Departure Patient Disposition: Home Clinical Impression: Right flank pain Instructions: DI for Flank Pain Activity Restrictions/Additional Instructions: Your workup here in the emergency department is very reassuring. I recommend that you contact your primary doctor for a follow-up. Return to the emergency department for new or worsening symptoms. Prescriptions: No Action sertraline 50 mg tablet 50 mg PO DAILY Qty: 30 0RF acetaminophen [Tylenol] 325 mg tablet 325 mg PO ONCE PRN (Reason: Pain (Scale Score 1-3)) prenat.vits,hilary,[id number]-xpucs Tablet 1 tab PO DAILY Referrals: ProviderKeyonna [Primary Care Provider] - Stand Alone Forms: Patient Portal/API
[2023-02-16 11:42] LABS: Add Manual Diff / Slide Review NO; Basophils Absolute Auto 0 /uL (0-100); Basophils Percent Auto 0.1 % (0-2); Eosinophils Absolute Auto 100 /uL (0-450); Eosinophils Percent Auto 0.8 % (2-4); Hematocrit 37.1 % (36-46); Hemoglobin 13.1 g/dL (12.0-16.0); Lymphocytes Absolute Auto 900 /uL (1100-4500); Lymphocytes Percent Auto 12.8 % (25-40); Mean Corpuscular HGB Conc 35.2 % (30-36); Mean Corpuscular Hemoglobin 29.4 PG (26-34); Mean Corpuscular Volume 83.5 fL (80-100); Monocytes Absolute Auto 500 /uL (0-900); Monocytes Percent Auto 7.2 % (3-14); Neutrophils Absolute Auto 5600 /uL (1500-7000); Neutrophils Percent Auto 79.1 % (50-75); Platelet Count 241 X10^3/uL (150-400); Red Blood Cell Count 4.45 X10^6/uL (4.0-5.2); Red Cell Distribution Width 12.9 % (11.6-14.8)
[2023-02-16 11:57] LABS: BUN Creatinine Ratio 15.5 (6-22); Blood Urea Nitrogen 9 mg/dL (7-17); Calcium 8.5 mg/dL (8.4-10.2); Carbon Dioxide 23 mmol/L (22-32); Chloride 104 mmol/L (98-107); Estimated Glomerular Filt Rate > 60 mL/min (>60); Glucose 89 mg/dL (70-100); HEMOLYSIS < 15 (0-50); Potassium 3.6 mmol/L (3.4-5.1); Sodium 137 mmol/L (137-145)
[2023-02-16 12:32] VITALS: PULSE 108; RESP 18; O2SAT 99
== END 2023-02-16 12:33 | disposition home or self-care (01) ==
PROVIDERS: Emergency Provider Emergency Medicine
DX: R10.9 Unspecified abdominal pain (principal); Z87.442 Personal history of urinary calculi
CPT/HCPCS: 36415; 74176; 80048; 81003; 81025; 85025; 99283; 99284